=== PATIENT | female | born 1925 | race Caucasian/White ===

== ENCOUNTER 2016-11-06 08:08 | Inpatient (IN) | payer MEDICARE ==
[~2016-11-06] VITALS: Ht 157.5 cm; Wt 54.3 kg
[~2016-11-06 08:08] MED LIST: AMLO10TA2 PO; APIX2.5T PO; BENA40TA2 PO; BISA10SU2 PR; BISA10SU65 PR; CALC200T24 PO; CALC400T40 PO; CLON0.1T PO; CLOP75TA22 PO; DICL75TA2 PO; DIGO125T PO; ENAL2.5T PO; FURO20TA3 PO; HYDR-3240 PO; LEVO500T8 PO; LORA1TAB PO; METH750T2 PO; METO-93 PO; METO-99 PO; MULT-108 PO; ONDA4TAB13 PO; ONDA4TAB13 SL; OXYC1TAB7 PO; PHEN1SUP77 RC; PRAV10TA2 PO; PRAV80TA2 PO; PREG50CA PO; PREG75CA PO
[2016-11-06] MEDS ORDERED: LACTATED RINGERS 1,000 ML IV SCH (09:29)
[2016-11-06] MEDS ORDERED: FENTANYL PF 100 MCG/2ML ONE ×2 (09:41→11:52)
[2016-11-06] MEDS ORDERED: hydrALAzine 20 MG/ML, 1ML IV PRN (10:30)
[2016-11-06] MEDS ORDERED: OXYcodone 5 MG/5 ML ORAL.SOL UDC PO PRN (10:30)
[2016-11-06] MEDS ORDERED: ONDANSETRON 2MG/ML, 2ML IVPush PRN (10:30)
[2016-11-06] MEDS ORDERED: BUPIVACAINE/PF 0.25% ONE (11:12)
[2016-11-06] MEDS: LABETALOL 5MG/ML, 20ML IV PRN ×3 (11:36→12:10)
[2016-11-06] MEDS ORDERED: HYDROmorphone 1 MG/ML, 1ML ONE (11:52)
[2016-11-06] MEDS: HYDROmorphone 1 MG/ML, 1ML IV PRN ×4 (11:55→12:36)
[2016-11-06] MEDS: FENTANYL PF 100 MCG/2ML IV PRN ×3 (11:58→12:13)
[2016-11-06] MEDS ORDERED: hydrALAzine 20 MG/ML, 1ML ONE (12:33)
[2016-11-06] MEDS ORDERED: LORazepam 2 MG/ML, 1ML ONE (12:39)
[2016-11-06] MEDS: LORazepam 2 MG/ML, 1ML IVPush PRN ×3 (12:45→19:07)
[2016-11-06 14:00] VITALS: BP 153/85
[2016-11-06] MEDS ORDERED: ONDANSETRON ODT 4 MG PO PRN (14:00)
[2016-11-06] MEDS ORDERED: BISACODYL 10 MG SUPP PR PRN (14:00)
[2016-11-06] MEDS ORDERED: HEMORRHOIDAL SUPP.RECT PR PRN (14:00)
[2016-11-06] MEDS: DIGOXIN 0.125 MG TABLET PO SCH (15:00)
[2016-11-06] MEDS: MULTIVITAMINS/MINERALS TABLET PO SCH (15:00)
[2016-11-06] MEDS: METOPROLOL SUCCINATE 50 MG TAB.ER.24H PO SCH (15:00)
[2016-11-06] MEDS ORDERED: PROPOFOL 10 MG/ML, 20ML ONE (15:21)
[2016-11-06] MEDS ORDERED: CEFAZOLIN 1,000 MG ONE (15:21)
[2016-11-06] MEDS ORDERED: ONDANSETRON 2MG/ML, 2ML ONE (15:21)
[2016-11-06] MEDS ORDERED: SODIUM CHLORIDE 0.9% 1,000 ML IV SCH (16:00)
[2016-11-06] MEDS: FENTANYL PF 100 MCG/2ML IVPush PRN ×2 (17:26→22:10)
[2016-11-06 18:00] VITALS: BP 170/83
[2016-11-06 20:49] VITALS: BP 140/81
[2016-11-06] MEDS: PRAVASTATIN 20 MG TABLET PO SCH (21:00)
[2016-11-06] MEDS: PREGABALIN 75 MG CAPSULE PO SCH (21:00)
[2016-11-07 00:20] VITALS: BP 152/83
[2016-11-07 04:20] VITALS: BP 160/76
[2016-11-07] MEDS: METOPROLOL SUCCINATE 50 MG TAB.ER.24H PO SCH (05:32)
[2016-11-07] MEDS: HYDROcodone/APAP 5/325 TABLET PO PRN ×2 (05:33→13:44)
[2016-11-07 06:30] LABS: ASPARTATE AMINO TRANSFERASE 26 U/L (15-37); BLOOD UREA NITROGEN 12 mg/dL (7-18)
[2016-11-07] MEDS: LORazepam 2 MG/ML, 1ML IVPush PRN ×2 (06:51→23:01)
[2016-11-07 08:49] VITALS: BP 145/60
[2016-11-07 12:02] LABS: PATH.CAST-FLAG NOT PRESENT; SPERM-FLAG NOT PRESENT; SRC-FLAG NOT PRESENT; XTAL-FLAG NOT PRESENT; YLC-FLAG NOT PRESENT
[2016-11-07] MEDS: MULTIVITAMINS/MINERALS TABLET PO SCH (13:41)
[2016-11-07] MEDS: DIGOXIN 0.125 MG TABLET PO SCH (13:41)
[2016-11-07 14:22] VITALS: BP 159/86
[2016-11-07] MEDS: FENTANYL PF 100 MCG/2ML IVPush PRN ×2 (14:59→21:59)
[2016-11-07] MEDS ORDERED: CEFTRIAXONE 1,000 MG in SODIUM CHLORIDE 0.9% 50 ML IV SCH (20:00)
[2016-11-07 20:34] VITALS: BP 152/78
[2016-11-07] MEDS: PRAVASTATIN 20 MG TABLET PO SCH (21:58)
[2016-11-07] MEDS: PREGABALIN 75 MG CAPSULE PO SCH (21:59)
[2016-11-08] MEDS: HYDROcodone/APAP 5/325 TABLET PO PRN ×3 (00:47→14:33)
[2016-11-08 02:41] VITALS: BP 127/54
[2016-11-08 05:25] LABS: BLOOD UREA NITROGEN 10 mg/dL (7-18)
[2016-11-08] MEDS: METOPROLOL SUCCINATE 50 MG TAB.ER.24H PO SCH (05:30)
[2016-11-08] MEDS: MULTIVITAMINS/MINERALS TABLET PO SCH (07:53)
[2016-11-08] MEDS: DIGOXIN 0.125 MG TABLET PO SCH (07:54)
[2016-11-08 09:20] VITALS: BP 134/63
[2016-11-08 14:30] VITALS: BP 128/64
[2016-11-08] MEDS: LORazepam 2 MG/ML, 1ML IVPush PRN ×2 (15:17→19:28)
[2016-11-08] MEDS: FENTANYL PF 100 MCG/2ML IVPush PRN (16:32)
[2016-11-08 18:36] VITALS: BP 153/79
[2016-11-08] MEDS: PREGABALIN 75 MG CAPSULE PO SCH (19:26)
[2016-11-08] MEDS: PRAVASTATIN 20 MG TABLET PO SCH (19:26)
[2016-11-08] MEDS: CALCIUM CARBONATE 500 MG TAB.CHEW PO PRN (19:36)
[2016-11-08] MEDS ORDERED: CEFTRIAXONE PMX 1GM/50ML 50 ML IV SCH (20:00)
[2016-11-09 00:55] VITALS: BP 156/76
[2016-11-09] MEDS: HYDROcodone/APAP 5/325 TABLET PO PRN ×4 (00:59→23:03)
[2016-11-09] MEDS: METOPROLOL SUCCINATE 50 MG TAB.ER.24H PO SCH (05:09)
[2016-11-09 07:38] VITALS: BP 157/77
[2016-11-09] MEDS: MULTIVITAMINS/MINERALS TABLET PO SCH (08:47)
[2016-11-09] MEDS: DIGOXIN 0.125 MG TABLET PO SCH (08:48)
[2016-11-09] MEDS ORDERED: ERTAPENEM 1 GM in SODIUM CHLORIDE 0.9% 50 ML IV SCH (09:00)
[2016-11-09] MEDS: CALCIUM CARBONATE 500 MG TAB.CHEW PO PRN (09:51)
[2016-11-09] MEDS: FENTANYL PF 100 MCG/2ML IVPush PRN ×3 (13:07→20:22)
[2016-11-09 13:10] VITALS: BP 174/93
[2016-11-09 13:49] VITALS: BP 159/85
[2016-11-09 16:04] VITALS: BP 141/70
[2016-11-09] MEDS: CEFTAZIDIME 1,000 MG in SODIUM CHLORIDE 0.9% 50 ML IV SCH (16:35)
[2016-11-09 19:45] VITALS: BP 164/91
[2016-11-09] MEDS: PREGABALIN 75 MG CAPSULE PO SCH (21:06)
[2016-11-09] MEDS: PRAVASTATIN 20 MG TABLET PO SCH (21:06)
[2016-11-10 04:06] VITALS: BP 105/64
[2016-11-10] MEDS: METOPROLOL SUCCINATE 50 MG TAB.ER.24H PO SCH (06:05)
[2016-11-10 06:11] LABS: BLOOD UREA NITROGEN 9 mg/dL (7-18)
[2016-11-10] MEDS: MULTIVITAMINS/MINERALS TABLET PO SCH (08:06)
[2016-11-10] MEDS: CEFTAZIDIME 1,000 MG in SODIUM CHLORIDE 0.9% 50 ML IV SCH ×4 (08:06→23:56)
[2016-11-10] MEDS: HYDROcodone/APAP 5/325 TABLET PO PRN ×3 (08:07→22:20)
[2016-11-10] MEDS: DIGOXIN 0.125 MG TABLET PO SCH (08:07)
[2016-11-10] MEDS: FENTANYL PF 100 MCG/2ML IVPush PRN ×3 (10:07→15:25)
[2016-11-10 14:34] VITALS: BP 144/86
[2016-11-10] MEDS: APIXABAN 2.5 MG TABLET PO SCH (20:21)
[2016-11-10] MEDS: PRAVASTATIN 20 MG TABLET PO SCH (20:21)
[2016-11-10] MEDS: PREGABALIN 75 MG CAPSULE PO SCH (20:21)
[2016-11-10 20:31] VITALS: BP 172/94
[2016-11-10] MEDS ORDERED: APIXABAN 2.5 MG TABLET PO SCH (21:00)
[2016-11-10] MEDS: CALCIUM CARBONATE 500 MG TAB.CHEW PO PRN (22:20)
[2016-11-10] MEDS: LORazepam 2 MG/ML, 1ML IVPush PRN ×2 (22:21→23:57)
[2016-11-11] MEDS: FENTANYL PF 100 MCG/2ML IVPush PRN ×4 (02:05→23:34)
[2016-11-11 02:47] VITALS: BP 136/76
[2016-11-11 06:22] VITALS: BP 138/73
[2016-11-11] MEDS: METOPROLOL SUCCINATE 50 MG TAB.ER.24H PO SCH (09:16)
[2016-11-11] MEDS: DIGOXIN 0.125 MG TABLET PO SCH (09:16)
[2016-11-11] MEDS: CEFTAZIDIME 1,000 MG in SODIUM CHLORIDE 0.9% 50 ML IV SCH ×3 (09:16→23:36)
[2016-11-11] MEDS: HYDROcodone/APAP 5/325 TABLET PO PRN ×3 (09:16→21:11)
[2016-11-11] MEDS: MULTIVITAMINS/MINERALS TABLET PO SCH (09:16)
[2016-11-11] MEDS: CALCIUM CARBONATE 500 MG TAB.CHEW PO PRN (09:17)
[2016-11-11 13:40] VITALS: BP 105/70
[2016-11-11] MEDS: LACTOBACILLUS CHEW TABLET PO SCH ×2 (16:00→21:11)
[2016-11-11 20:07] VITALS: BP 128/92
[2016-11-11] MEDS: PRAVASTATIN 20 MG TABLET PO SCH (21:11)
[2016-11-11] MEDS: PREGABALIN 75 MG CAPSULE PO SCH (21:11)
[2016-11-11] MEDS: APIXABAN 2.5 MG TABLET PO SCH (21:11)
[2016-11-12] MEDS: LORazepam 2 MG/ML, 1ML IVPush PRN (00:18)
[2016-11-12 03:31] VITALS: BP 135/80
[2016-11-12 06:16] LABS: BLOOD UREA NITROGEN 13 mg/dL (7-18)
[2016-11-12] MEDS: CEFTAZIDIME 1,000 MG in SODIUM CHLORIDE 0.9% 50 ML IV SCH ×2 (08:15→15:53)
[2016-11-12] MEDS: MULTIVITAMINS/MINERALS TABLET PO SCH (08:15)
[2016-11-12] MEDS: HYDROcodone/APAP 5/325 TABLET PO PRN ×3 (08:15→22:17)
[2016-11-12] MEDS: DIGOXIN 0.125 MG TABLET PO SCH (08:15)
[2016-11-12] MEDS: LACTOBACILLUS CHEW TABLET PO SCH ×3 (08:15→22:14)
[2016-11-12] MEDS: METOPROLOL SUCCINATE 50 MG TAB.ER.24H PO SCH (08:15)
[2016-11-12 08:23] VITALS: BP 109/79
[2016-11-12 14:44] VITALS: BP 105/61
[2016-11-12] MEDS: FENTANYL PF 100 MCG/2ML IVPush PRN (15:53)
[2016-11-12] MEDS: APIXABAN 2.5 MG TABLET PO SCH (22:13)
[2016-11-12] MEDS: PREGABALIN 75 MG CAPSULE PO SCH (22:13)
[2016-11-12] MEDS: PRAVASTATIN 20 MG TABLET PO SCH (22:13)
[2016-11-13] MEDS: CEFTAZIDIME 1,000 MG in SODIUM CHLORIDE 0.9% 50 ML IV SCH ×4 (00:34→23:41)
[2016-11-13 01:06] VITALS: BP 108/69
[2016-11-13 06:32] VITALS: BP 125/52
[2016-11-13] MEDS: METOPROLOL SUCCINATE 50 MG TAB.ER.24H PO SCH (06:33)
[2016-11-13 07:27] VITALS: BP 176/93
[2016-11-13] MEDS: LACTOBACILLUS CHEW TABLET PO SCH ×3 (07:34→21:44)
[2016-11-13] MEDS: FENTANYL PF 100 MCG/2ML IVPush PRN ×3 (07:47→16:28)
[2016-11-13] MEDS: MULTIVITAMINS/MINERALS TABLET PO SCH (09:38)
[2016-11-13] MEDS: DIGOXIN 0.125 MG TABLET PO SCH (09:38)
[2016-11-13] MEDS: CALCIUM CARBONATE 500 MG TAB.CHEW PO PRN (09:38)
[2016-11-13] MEDS: HYDROcodone/APAP 5/325 TABLET PO PRN ×2 (12:42→18:49)
[2016-11-13 13:50] VITALS: BP 122/72
[2016-11-13 19:57] VITALS: BP 118/58
[2016-11-13] MEDS: APIXABAN 2.5 MG TABLET PO SCH (21:44)
[2016-11-13] MEDS: PRAVASTATIN 20 MG TABLET PO SCH (21:44)
[2016-11-13] MEDS: PREGABALIN 75 MG CAPSULE PO SCH (21:45)
[2016-11-14] MEDS: LORazepam 2 MG/ML, 1ML IVPush PRN (00:09)
[2016-11-14 02:41] VITALS: BP 118/55
[2016-11-14 05:43] VITALS: BP 162/79
[2016-11-14] MEDS: METOPROLOL SUCCINATE 50 MG TAB.ER.24H PO SCH (06:41)
[2016-11-14] MEDS: CEFTAZIDIME 1,000 MG in SODIUM CHLORIDE 0.9% 50 ML IV SCH ×2 (07:54→16:56)
[2016-11-14 08:30] VITALS: BP 154/98
[2016-11-14] MEDS: LACTOBACILLUS CHEW TABLET PO SCH ×3 (09:53→20:02)
[2016-11-14] MEDS: DIGOXIN 0.125 MG TABLET PO SCH (09:54)
[2016-11-14] MEDS: MULTIVITAMINS/MINERALS TABLET PO SCH (09:54)
[2016-11-14] MEDS: HYDROcodone/APAP 5/325 TABLET PO PRN ×2 (10:17→18:15)
[2016-11-14] MEDS ORDERED: TOBRAMYCIN PER PHARMACY MC PRN (10:30)
[2016-11-14] MEDS ORDERED: FOSFOMYCIN 3 GM PACKET PO ONE (10:30)
[2016-11-14] MEDS ORDERED: SODIUM CHLORIDE 0.9% IV SCH (11:00)
[2016-11-14] MEDS ORDERED: PHARMACOKINETIC MONITORING MC PRN (11:00)
[2016-11-14] MEDS ORDERED: TOBRAMYCIN IV SCH (11:00)
[2016-11-14] MEDS: NYSTATIN 500,000 UNITS/5 ML UDC PO SCH ×3 (11:10→20:02)
[2016-11-14 12:03] LABS: ASPARTATE AMINO TRANSFERASE 12 U/L (15-37); BLOOD UREA NITROGEN 16 mg/dL (7-18)
[2016-11-14 13:40] VITALS: BP 124/61
[2016-11-14 19:00] VITALS: BP 126/60
[2016-11-14] MEDS: APIXABAN 2.5 MG TABLET PO SCH (20:02)
[2016-11-14] MEDS: CALCIUM CARBONATE 500 MG TAB.CHEW PO PRN (20:02)
[2016-11-14] MEDS: PRAVASTATIN 20 MG TABLET PO SCH (20:02)
[2016-11-14] MEDS: PREGABALIN 75 MG CAPSULE PO SCH (20:02)
[2016-11-15] MEDS: CEFTAZIDIME 1,000 MG in SODIUM CHLORIDE 0.9% 50 ML IV SCH ×3 (00:13→16:15)
[2016-11-15] MEDS: HYDROcodone/APAP 5/325 TABLET PO PRN ×4 (00:13→19:15)
[2016-11-15] MEDS: TOBRAMYCIN IV SCH ×2 (01:20→13:20)
[2016-11-15] MEDS: SODIUM CHLORIDE 0.9% IV SCH ×2 (01:20→13:20)
[2016-11-15 02:45] VITALS: BP 130/74
[2016-11-15 06:11] LABS: BLOOD UREA NITROGEN 14 mg/dL (7-18)
[2016-11-15] MEDS: NYSTATIN 500,000 UNITS/5 ML UDC PO SCH ×4 (06:22→21:11)
[2016-11-15 06:34] VITALS: BP 151/81
[2016-11-15] MEDS: METOPROLOL SUCCINATE 50 MG TAB.ER.24H PO SCH (06:36)
[2016-11-15 07:20] VITALS: BP 152/78
[2016-11-15] MEDS: DIGOXIN 0.125 MG TABLET PO SCH (07:53)
[2016-11-15] MEDS: MULTIVITAMINS/MINERALS TABLET PO SCH (07:53)
[2016-11-15] MEDS: LACTOBACILLUS CHEW TABLET PO SCH ×3 (07:53→21:11)
[2016-11-15 14:54] VITALS: BP 110/66
[2016-11-15] MEDS: LORazepam 2 MG/ML, 1ML IVPush PRN ×2 (15:36→21:44)
[2016-11-15 19:23] VITALS: BP 166/77
[2016-11-15] MEDS: PREGABALIN 75 MG CAPSULE PO SCH (21:11)
[2016-11-15] MEDS: APIXABAN 2.5 MG TABLET PO SCH (21:11)
[2016-11-15] MEDS: PRAVASTATIN 20 MG TABLET PO SCH (21:11)
[2016-11-15] MEDS ORDERED: OMNIPAQUE 350 MG/ML, 100ML BOTTLE ONE (22:24)
[2016-11-16] MEDS: CEFTAZIDIME 1,000 MG in SODIUM CHLORIDE 0.9% 50 ML IV SCH ×3 (00:12→15:59)
[2016-11-16] MEDS: TOBRAMYCIN IV SCH ×2 (01:38→13:30)
[2016-11-16] MEDS: SODIUM CHLORIDE 0.9% IV SCH ×2 (01:38→13:30)
[2016-11-16 01:54] VITALS: BP 169/96
[2016-11-16 05:39] LABS: BLOOD UREA NITROGEN 9 mg/dL (7-18)
[2016-11-16 06:32] VITALS: BP 144/83
[2016-11-16] MEDS: NYSTATIN 500,000 UNITS/5 ML UDC PO SCH ×4 (06:34→19:56)
[2016-11-16] MEDS: METOPROLOL SUCCINATE 50 MG TAB.ER.24H PO SCH (06:34)
[2016-11-16] MEDS: HYDROcodone/APAP 5/325 TABLET PO PRN ×2 (06:34→19:56)
[2016-11-16 06:45] VITALS: BP 163/100
[2016-11-16] MEDS: LACTOBACILLUS CHEW TABLET PO SCH ×3 (07:37→19:56)
[2016-11-16] MEDS: MULTIVITAMINS/MINERALS TABLET PO SCH (07:38)
[2016-11-16] MEDS: DIGOXIN 0.125 MG TABLET PO SCH (07:38)
[2016-11-16 09:09] VITALS: BP 125/76
[2016-11-16] MEDS: LORazepam 2 MG/ML, 1ML IVPush PRN ×3 (11:05→23:54)
[2016-11-16 14:46] VITALS: BP 152/89
[2016-11-16 19:54] VITALS: BP 165/91
[2016-11-16] MEDS: PREGABALIN 75 MG CAPSULE PO SCH (19:56)
[2016-11-16] MEDS: APIXABAN 2.5 MG TABLET PO SCH (19:56)
[2016-11-16] MEDS: PRAVASTATIN 20 MG TABLET PO SCH (19:56)
[2016-11-17] MEDS: CEFTAZIDIME 1,000 MG in SODIUM CHLORIDE 0.9% 50 ML IV SCH ×3 (00:19→16:40)
[2016-11-17] MEDS: SODIUM CHLORIDE 0.9% IV SCH ×2 (01:21→13:22)
[2016-11-17] MEDS: TOBRAMYCIN IV SCH ×2 (01:21→13:22)
[2016-11-17 01:57] VITALS: BP 123/73
[2016-11-17 05:41] VITALS: BP 171/104
[2016-11-17] MEDS: METOPROLOL SUCCINATE 50 MG TAB.ER.24H PO SCH (05:44)
[2016-11-17] MEDS: NYSTATIN 500,000 UNITS/5 ML UDC PO SCH ×4 (05:44→20:34)
[2016-11-17] MEDS: HYDROcodone/APAP 5/325 TABLET PO PRN ×3 (05:44→17:56)
[2016-11-17 07:55] VITALS: BP 123/81
[2016-11-17] MEDS: LACTOBACILLUS CHEW TABLET PO SCH ×3 (08:22→20:34)
[2016-11-17] MEDS: DIGOXIN 0.125 MG TABLET PO SCH (08:22)
[2016-11-17] MEDS: MULTIVITAMINS/MINERALS TABLET PO SCH (08:22)
[2016-11-17 10:53] LABS: BLOOD UREA NITROGEN 8 mg/dL (7-18)
[2016-11-17 12:40] VITALS: BP 129/80
[2016-11-17] MEDS: LORazepam 2 MG/ML, 1ML IVPush PRN ×2 (13:18→22:35)
[2016-11-17 19:34] VITALS: BP 127/80
[2016-11-17] MEDS: APIXABAN 2.5 MG TABLET PO SCH (20:34)
[2016-11-17] MEDS: PRAVASTATIN 20 MG TABLET PO SCH (20:34)
[2016-11-17] MEDS: PREGABALIN 75 MG CAPSULE PO SCH (20:34)
[2016-11-18] MEDS: HYDROcodone/APAP 5/325 TABLET PO PRN ×5 (00:05→22:47)
[2016-11-18] MEDS: CEFTAZIDIME 1,000 MG in SODIUM CHLORIDE 0.9% 50 ML IV SCH ×3 (00:05→15:56)
[2016-11-18] MEDS: SODIUM CHLORIDE 0.9% IV SCH (01:33)
[2016-11-18] MEDS: TOBRAMYCIN IV SCH (01:33)
[2016-11-18 01:46] VITALS: BP 142/90
[2016-11-18 05:52] LABS: BLOOD UREA NITROGEN 9 mg/dL (7-18)
[2016-11-18 05:53] LABS: ASPARTATE AMINO TRANSFERASE 14 U/L (15-37)
[2016-11-18 06:30] VITALS: BP 154/93
[2016-11-18] MEDS: NYSTATIN 500,000 UNITS/5 ML UDC PO SCH ×4 (06:33→20:30)
[2016-11-18] MEDS: METOPROLOL SUCCINATE 50 MG TAB.ER.24H PO SCH (06:33)
[2016-11-18 08:10] VITALS: BP 159/78
[2016-11-18] MEDS: MULTIVITAMINS/MINERALS TABLET PO SCH (09:00)
[2016-11-18] MEDS: LACTOBACILLUS CHEW TABLET PO SCH ×3 (10:21→20:31)
[2016-11-18] MEDS: DIGOXIN 0.125 MG TABLET PO SCH (10:21)
[2016-11-18 13:22] VITALS: BP 152/90
[2016-11-18] MEDS ORDERED: SODIUM CHLORIDE 0.9% IV SCH (14:00)
[2016-11-18] MEDS ORDERED: TOBRAMYCIN IV SCH (14:00)
[2016-11-18 19:08] VITALS: BP 155/78
[2016-11-18] MEDS ORDERED: CEFTAZIDIME IV SCH (19:31)
[2016-11-18] MEDS ORDERED: DEXTROSE 5% IV SCH (19:31)
[2016-11-18] MEDS: PRAVASTATIN 20 MG TABLET PO SCH (20:30)
[2016-11-18] MEDS: APIXABAN 2.5 MG TABLET PO SCH (20:31)
[2016-11-18] MEDS: PREGABALIN 75 MG CAPSULE PO SCH (20:31)
[2016-11-18 22:58] LABS: PATH.CAST-FLAG NOT PRESENT; SPERM-FLAG NOT PRESENT; SRC-FLAG NOT PRESENT; XTAL-FLAG NOT PRESENT; YLC-FLAG NOT PRESENT
[2016-11-19 01:40] VITALS: BP 147/87
[2016-11-19] MEDS: HYDROcodone/APAP 5/325 TABLET PO PRN (06:01)
[2016-11-19] MEDS: METOPROLOL SUCCINATE 50 MG TAB.ER.24H PO SCH (06:01)
[2016-11-19] MEDS: NYSTATIN 500,000 UNITS/5 ML UDC PO SCH ×3 (06:01→16:14)
[2016-11-19 06:33] VITALS: BP 170/93
[2016-11-19] MEDS: MULTIVITAMINS/MINERALS TABLET PO SCH (09:00)
[2016-11-19] MEDS: LACTOBACILLUS CHEW TABLET PO SCH ×2 (09:55→16:15)
[2016-11-19] MEDS: DIGOXIN 0.125 MG TABLET PO SCH (09:55)
[2016-11-19] MEDS: morphine SULFATE ORAL.CONC 20 MG/ML BC PRN ×3 (10:45→16:15)
[2016-11-19 13:31] VITALS: BP 157/79
[2016-11-19] MEDS ORDERED: CEFTAZIDIME 1,000 MG in SODIUM CHLORIDE 0.9% 50 ML IV SCH (16:00)
[2016-11-19] MEDS ORDERED: NYST1000 PO (16:35)
[2016-11-19] MEDS ORDERED: APIX2.5T PO (16:35)
== END 2016-11-19 16:41 | DRG 239 ==
LOC: ORIP 08:08 → EDSTATUS 10:00 → 4NOR 13:45
PROVIDERS: ADMIT Surgery; ATTEND Internal Medicine
PROC: 3E0T3CZ (ICD-10-PCS; 2016-11-06)
PROC: 0Y6J0Z2 Detachment at Left Lower Leg, Mid, Open Approach (ICD-10-PCS; principal; 2016-11-06 10:00)
PROC: 0T9B70Z Drainage of Bladder with Drainage Device, Via Natural or Artificial Opening (ICD-10-PCS; 2016-11-07)
DX: I70.262 Atherosclerosis of native arteries of extremities with gangrene, left leg (principal); E43 Unspecified severe protein-calorie malnutrition; E87.1 Hypo-osmolality and hyponatremia; D68.69 Other thrombophilia; N39.0 Urinary tract infection, site not specified; L97.529 Non-pressure chronic ulcer of other part of left foot with unspecified severity; D75.89 Other specified diseases of blood and blood-forming organs; G89.4 Chronic pain syndrome; I10 Essential (primary) hypertension; I48.0 Paroxysmal atrial fibrillation; B96.5 Pseudomonas (aeruginosa) (mallei) (pseudomallei) as the cause of diseases classified elsewhere; F41.9 Anxiety disorder, unspecified; M19.90 Unspecified osteoarthritis, unspecified site; Z66 Do not resuscitate; Z86.79 Personal history of other diseases of the circulatory system; Z87.440 Personal history of urinary (tract) infections; Z95.828 Presence of other vascular implants and grafts; Z88.0 Allergy status to penicillin; Z88.2 Allergy status to sulfonamides; Z88.6 Allergy status to analgesic agent; Z88.5 Allergy status to narcotic agent; Z88.8 Allergy status to other drugs, medicaments and biological substances; Z68.21 Body mass index [BMI] 21.0-21.9, adult
CPT/HCPCS: 36415; 71010; 80048; 80053; 80200; 81001; 82040; 83735; 84100; 85025; 85651; 86140; 87040; 87077; 87086; 87186; 88307; C1729; J0690; J0696; J0713; J1170; J1335; J2405; J2704; J3010; J3490; Q0162; Q9967; J0360; J2060; J3260; J7030; J7120